=== PATIENT | female | born 1955 | race Two or more races ===

== ENCOUNTER 2024-04-14 10:50 | Outpatient (REF) | payer MEDICAID, SELFPAY ==
[2024-04-14 11:53] LABS: MANUAL DIFF FLAG NO
[2024-04-14 11:58] LABS: Basophils Percent Auto 0.7 % (0-2); Eosinophils Absolute Auto 0.2 X10*3/uL (0.0-0.4); Eosinophils Percent Auto 2.8 % (0-4); Hemoglobin 14.2 g/dl (12.0-16.0); Imm Gran Abs Auto 0.02 X10*3/uL (0.00-0.03); Imm Gran Pct Auto 0.3 % (0.0-0.4); Lymphocytes Percent Auto 33.9 % (20-40); Mean Corpuscular Hemoglobin 26.7 pg (27.0-33.0); Mean Corpuscular Volume 80.8 fL (80.0-98.0); Mean Platelet Volume 10.5 fL (9.4-12.3); Monocytes Absolute Auto 0.5 X10*3/uL (0.1-1.2); Monocytes Percent Auto 8.5 % (2-11); Neutrophils Absolute Auto 3.1 x10*3/uL (2.0-8.3); Neutrophils Percent Auto 53.8 % (45-73); Platelet Count 232 X10*3/uL (160-400); Red Blood Count 5.32 X10*6/uL (4.20-5.50); Red Cell Distribution Width 13.4 % (11.0-16.0); White Blood Count 5.8 X10*3/uL (4.8-10.8)
[2024-04-14 12:20] LABS: Alanine Aminotransferase 31 U/L (0-31); Alkaline Phosphatase 111 U/L (39-117); Anion Gap 13 (12-20); Aspartate Amino Transferase 31 U/L (5-31); Bilirubin Direct 0.2 mg/dL (0.0-0.5); Bilirubin Total 0.6 mg/dL (0.0-1.0); Blood Urea Nitrogen 11 mg/dL (9-16); Calcium 9.3 mg/dL (8.4-10.2); Carbon Dioxide 24 mmol/L (22-29); Chloride 108 mmol/L (96-108); Cholesterol 201 mg/dL (<200); Estimated Glomerular Filt Rate > 60; Glucose Random 97 mg/dL (60-115); HDL Cholesterol 37 mg/dL (>40); Iron 95 mcg/dL (30-160); LDL Cholesterol Calculated 136 mg/dL (<100); Percent Iron Saturation 38 % (15-50); Potassium 4.7 mmol/L (3.3-5.1); Sodium 140 mmol/L (135-145); Total Iron Binding Capacity 253 mcg/dL (228-428); Total Protein 7.5 g/dL (6.5-8.0); Triglycerides 144 mg/dL (<150); Unsaturated Iron Binding 158 ug/dL
[2024-04-14 12:43] LABS: Ferritin 250 ng/mL (10-250); TSH reflex Free T4 2.28 uIU/mL (0.32-4.0); Vitamin D 25-OH Total 38.3 ng/mL (>30)
[2024-04-14 13:07] LABS: Vitamin B12 297 pg/mL (200-900)
[2024-04-14 13:13] LABS: CT PCR NOT DETECTED (Not Detect.); NG PCR NOT DETECTED (Not Detect.)
[2024-04-15 04:56] LABS: HIV AB/AG Nonreactive (Nonreactive); HIV Num 1 0.08 S/CO (0.00-0.99); ~HepC Num1 0.12 S/CO (0.00-0.79); ~Hepatitis C Antibody Nonreactive (Nonreactive)
== END 2024-04-14 10:51 | disposition home or self-care (01) ==
LOC: HO.HHCL 10:50
PROVIDERS: Visit Provider Family Medicine
DX: Z00.00 Encounter for general adult medical examination without abnormal findings (principal); Z11.59 Encounter for screening for other viral diseases; Z11.4 Encounter for screening for human immunodeficiency virus [HIV]; Z11.3 Encounter for screening for infections with a predominantly sexual mode of transmission; Z86.39 Personal history of other endocrine, nutritional and metabolic disease
CPT/HCPCS: 36415; 80048; 80061; 80076; 82306; 82607; 82728; 83540; 84443; 85025; 86803; 87389; 87491; 87591

== ENCOUNTER → 2024-05-21 08:00 | Outpatient (BNV) | payer MEDICAID, SELFPAY | PROVIDERS: PCP Family Medicine; Visit Provider Internal Medicine | DX: Z12.31 Encounter for screening mammogram for malignant neoplasm of breast (principal) | CPT/HCPCS: 77063; 77067 ==

== ENCOUNTER 2024-05-21 08:02 | Outpatient (REF) | payer MEDICAID, SELFPAY ==
--- NOTE | ~2024-05-21 | MM_ITS ---
EXAMINATION: MM SCREENING DIGITAL BREAST TOMOSYNTHESIS, BILATERAL CLINICAL INFORMATION: Screening. Asymptomatic. COMPARISON: Mammography: Comparison is made with available priors TECHNIQUE: Digital breast mammography with tomosynthesis is performed in both the craniocaudal and mediolateral oblique views along with computer-aided detection (CAD). FINDINGS: The breasts are heterogeneously dense, which may obscure small masses (ACR BI-RADS breast composition Category c). There are no significant masses, abnormal calcifications, or other abnormalities. MM/MM tomosynthesis screening BI IMPRESSION: No mammographic evidence of malignancy. ASSESSMENT: BI-RADS BI-RADS 1 - Negative RECOMMENDATION: Routine annual mammography screening. 1 year F/U This examination should not preclude the clinical evaluation of a suspicious palpable abnormality. This patient's information was entered into a reminder system with a target due date for their next mammogram. Electronically signed by: Tammy Valle DO 06/02/2024 11:59 AM EDT
== END 2024-05-21 08:03 | disposition home or self-care (01) ==
LOC: HO.MAMMO 08:02
PROVIDERS: PCP Family Medicine; Visit Provider Family Medicine
DX: Z12.31 Encounter for screening mammogram for malignant neoplasm of breast (principal)
CPT/HCPCS: 77063; 77067

== ENCOUNTER 2025-04-30 18:07 | Emergency (ER) | payer MEDICAID, SELFPAY ==
--- NOTE | 2025-04-30 18:10 | ECG_ITS ---
Test Reason : CHEST PAIN Blood Pressure : */* mmHG Vent. Rate : 70 BPM Atrial Rate : 70 BPM P-R Int : 126 ms QRS Dur : 88 ms QT Int : 374 ms P-R-T Axes : 64 -25 105 degrees QTcB Int : 403 ms Normal sinus rhythm Nonspecific T wave abnormality Abnormal ECG No previous ECGs available Referred By: Yeison Gautam Electronically Signed By: JASVIR CHAU
[2025-04-30 18:22] VITALS: BP 163/74; PULSE 81; RESP 18; TEMP 36.4; O2SAT 100; BMI 21.7
--- NOTE | 2025-04-30 18:29 | ED.GENADULT ---
HPI - General Adult General Chief complaint: General Medical Stated complaint: chest pain, high bp Time Seen by Provider: 04/30/25 18:45 Source: patient Mode of arrival: ambulatory Limitations: no limitations History of Present Illness ED Provider: Dr. Barroso [facility] narrative: This is a 69-year-old female presenting to the ER today for evaluation of near syncopal episode. Patient stated that she had sudden onset of a chest discomfort. Then she began to feel lightheaded. She denies any trauma. Family was able to catch her. She feels generalized weakness. Denies any unilateral focal neurological deficit no issue her balance no vision issue no headaches. Denies any recent illness. Related Data Allergies Allergy/AdvReac Type Severity Reaction Status Date / Time Unable to Assess Allergy Verified 04/30/25 18:28 Review of Systems Review of Systems: Pertinent review of systems as mentioned in HPI. All other system otherwise negative. [facility] Past Medical History [facility] Narrative: None Social History Social History Advance Directives: No Advance Directives Information Provided: No Physical Exam ED Exam Exam: General: Pleasant, no distress, interacting appropriately Head: Normacephalic, atraumatic ENT: oral mucosa moist, neck supple, no tracheal deviation Cardiovascular: regular rate, regular rhythm, no murmurs, rubbing, gallops Respiratory: CTAB, no wheeze, rales, rhonchi Gastrointestinal: Soft, non distended, non tender, non guarding Extremities: No limb pain or swelling, no calf tenderness Neurological: Awake and alert, no facial droop noted, sensation is intact bilaterally, good strength in the upper and lower extremity, no sign of ataxia with [id number] Skin: Warm and dry Psychiatric: Appropriate mood and thoughts Vital Signs: Vital Signs - 24 hr 04/30/25 18:22 04/30/25 20:20 04/30/25 22:18 Temperature 97.6 F 98.1 F 97.9 F Pulse Rate 81 65 65 Respiratory Rate 18 14 15 Blood Pressure 163/74 H 125/54 L 124/61 Pulse Oximetry 100 98 99 Oxygen Delivery Method Room Air Room Air Room Air BMI result Body Mass Index 21.7 Course Course Course Narrative: RME, this is a rapid medical exam performed by Manuel Gautam please refer to primary provider for complete H&P- 69-year-old female presents for evaluation of near syncopal episode. The patient is complaining of chest pain, EKG performed on arrival, labs were ordered as well. Medications Administered Discontinued Medications Generic Name Dose Route Start Last Admin Trade Name Margi PRN Reason Stop Dose Admin Magnesium Sulfate 2 gm in 50 mls @ 50 mls/hr 04/30/25 19:19 04/30/25 20:43 Magnesium Sulfate/H2o IV 04/30/25 20:18 Infused ONCE ONE Infusion Sodium Chloride 1,000 mls @ 999 mls/hr 04/30/25 19:30 04/30/25 20:44 Ns IV 04/30/25 20:30 Infused .Q1H1M LILO Infusion Medical Decision Making Medical Decision Making [facility] Narrative: 69 year old female presented hospital today for a near syncopal episode. She does not have any symptoms of chest pain at this time or palpitation. Patient states she does feel generalized weakness. On exam she has no objective focal neurological deficit. I do not think this is a stroke. We will obtain basic lab work for the patient. We will obtain a EKG. We will plan to give patient a bolus IV fluid and IV magnesium. We will plan to reassess patient afterward. EKG did not show any signs of STEMI, patient's troponin is negative, lab work is unremarkable. On reassessment patient states she is feeling better. She is able to ambulate without any issues. She denies any chest pain. She is chest pain-free After discussion with family. I recommended a Holter monitor to detect further cardiac arrhythmia. And follow up with primary care doctor. During agreement with this plan. Patient will be discharged. Differential Diagnosis Differential Diagnoses: The differential diagnosis associated with the presentation includes Dehydration, cardiac arrhythmia, ACS, CVA Lab Data [facility] Lab Attestation statement: I reviewed the patient's lab results. 04/30/25 18:33 04/30/25 18:33 Labs: Lab Results 04/30/25 Range/Units 18:33 WBC 6.5 (4.8-10.8) X10*3/uL RBC 5.32 (4.20-5.50) X10*6/uL Hgb 14.1 (12.0-16.0) g/dl Hct 41.9 (37.0-47.0) % MCV 78.8 L (80.0-98.0) fL MCH 26.5 L (27.0-33.0) pg MCHC 33.7 (31.0-35.0) g/dl RDW 13.7 (11.0-16.0) % Plt Count 208 (160-400) X10*3/uL MPV 10.2 (9.4-12.3) fL Immature Gran % (Auto) 0.2 (0.0-0.4) % Neut % (Auto) 55.8 (45-73) % Lymph % (Auto) 31.1 (20-40) % Grady % (Auto) 9.4 (2-11) % Eos % (Auto) 2.6 (0-4) % Baso % (Auto) 0.9 (0-2) % Lymph # (Auto) 2.0 (1.2-4.9) X10*3/uL Grady # (Auto) 0.6 (0.1-1.2) X10*3/uL Eos # (Auto) 0.2 (0.0-0.4) X10*3/uL Baso # (Auto) 0.1 (0.0-0.2) X10*3/uL Abs Immat Gran (auto) 0.01 (0.00-0.03) X10*3/uL Absolute Neuts (auto) 3.6 (2.0-8.3) x10*3/uL Absolute Nucleated RBC 0.000 (0.0-0.012) X10*3/uL Nucleated RBC % (auto) 0.0 (0.0-0.2) /100WBC Sodium 143 (135-145) mmol/L Potassium 3.9 (3.3-5.1) mmol/L Chloride 106 (96-108) mmol/L Carbon Dioxide 29 (22-29) mmol/L Anion Gap 12 (12-20) BUN 12 (9-16) mg/dL Creatinine 0.96 (0.5-1.4) mg/dL Estim Creat Clear Calc 44.5 Estimated GFR 57 Random Glucose 98 (60-115) mg/dL Calcium 9.3 (8.4-10.2) mg/dL Total Bilirubin 0.5 (0.0-1.0) mg/dL AST 31 (5-31) U/L ALT 22 (0-31) U/L Alkaline Phosphatase 131 H (39-117) U/L Troponin I High Sens < 2.7 (<3.5-17.0) ng/L Total Protein 7.6 (6.5-8.0) g/dL Albumin 4.4 (3.5-5.0) g/dL Independent Interpretation I performed an independent interpretation of an: EKG Discharge Plan Discharge Clinical Impression: Near syncope, Dehydration Patient Disposition: Home, Self-Care Instructions: Near Syncope (ED) Additional Instructions: Follow up with your primary care doctor for a holter monitor to rule out cardiac arrythmia. Labwork here is reassuring. Your troponin which test for heart damage is negative. EKG is normal. Print Language: Upper Sorbian
[2025-04-30 18:39] LABS: MANUAL DIFF FLAG NO
[2025-04-30 18:41] LABS: Hematocrit 41.9 % (37.0-47.0); Hemoglobin 14.1 g/dl (12.0-16.0); Imm Gran Abs Auto 0.01 X10*3/uL (0.00-0.03); Imm Gran Pct Auto 0.2 % (0.0-0.4); Lymphocytes Absolute Auto 2.0 X10*3/uL (1.2-4.9); Mean Corpuscular HGB Conc 33.7 g/dl (31.0-35.0); Mean Corpuscular Hemoglobin 26.5 pg (27.0-33.0); Mean Corpuscular Volume 78.8 fL (80.0-98.0); NRBC Abs Auto 0.000 X10*3/uL (0.0-0.012); NRBC Pct Auto 0.0 /100WBC (0.0-0.2); Platelet Count 208 X10*3/uL (160-400); Red Blood Count 5.32 X10*6/uL (4.20-5.50); White Blood Count 6.5 X10*3/uL (4.8-10.8)
[2025-04-30 18:55] LABS: Alanine Aminotransferase 22 U/L (0-31); Albumin Level 4.4 g/dL (3.5-5.0); Alkaline Phosphatase 131 U/L (39-117); Anion Gap 12 (12-20); Aspartate Amino Transferase 31 U/L (5-31); Blood Urea Nitrogen 12 mg/dL (9-16); Calcium 9.3 mg/dL (8.4-10.2); Carbon Dioxide 29 mmol/L (22-29); Chloride 106 mmol/L (96-108); Creatinine Clr Calc Pharmacy 44.5; Estimated Glomerular Filt Rate 57; Potassium 3.9 mmol/L (3.3-5.1); Sodium 143 mmol/L (135-145); Total Protein 7.6 g/dL (6.5-8.0)
--- OUTSIDE RECORDS SUMMARY | 2025-04-30 18:57 | XMS_ITS | Clinical Summary ---
Author Organization [facility] Address [address] [place] [address] 7[address] [place] [address] Care Team Providers Care Coping Machine Assembler Name Role Phone Bruna Alvarez MD Primary Care Provider +1- [phone] Allergies No known active allergies Active Problems Problem Noted Date Diagnosed Date Palpitations 06/15/2024 Overview (09/21/2024): Seen by [facility] cardiology 06/15/2024 ETT ordered and 2 week Holter monitory. 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 -discussed scheduling another visit to have a repeat pap smear done. Assessment & Plan (03/22/2024 11:31 AM EDT): -pt notes having a pap smear over 30 years ago and notes it was normal. -discussed scheduling another visit to have a repeat pap smear done. Chest pain 03/22/2024 Overview (03/22/2024): -has had scattered episodes with resolution and then recent re-occurrence of atypical chest pain -do not have any of pt's previous records as she just moved from [facility]. -referred to Cardiology to get evaluated 03/22/24 Assessment & Plan (03/22/2024 11:41 AM EDT): -has had scattered episodes with resolution and then recent re-occurrence of atypical chest pain -do not have any of pt's previous records as she just moved from [facility]. 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 03/22/2024 Breast cancer screening by mammogram 03/22/2024 Overview (03/22/2024): -pt cannot remember having a mammogram -breast exam normal 03/22/24 -ordered mammogram 03/22/24 Assessment & Plan (03/22/2024 11:46 AM EDT): -pt cannot remember having a mammogram -breast exam normal 03/22/24 -ordered mammogram 03/22/24 Colon cancer screening 03/22/2024 Overview (04/20/2024): -had colonoscopy in [facility] 6 yrs ago, cannot remember any abnormal results -discussed ColoGuard testing, ordered testing to pt's home 03/22/24, negative 04/2024 Assessment & Plan (03/22/2024 11:46 AM EDT): -had colonoscopy in [facility] 6 yrs ago, cannot remember any abnormal results -discussed ColoGuard testing, ordered testing to pt's home 03/22/24 Personal history of hyperthyroidism 03/22/2024 Overview (03/22/2024): -ordered labs 03/22/24 Assessment & Plan (03/22/2024 11:47 AM EDT): -ordered labs 03/22/24 Resolved Problems Problem Noted Date Diagnosed Date Resolved Date Physical exam 03/22/2024 05/28/2024 Encounter for screening for malignant neoplasm of colon 03/22/2024 03/22/2024 Overview (03/22/2024): -had colonoscopy in [facility] 6 yrs ago, cannot remember any abnormal results -discussed ColoGuard testing, ordered testing to pt's home 03/22/24 Assessment & Plan (03/22/2024 11:29 AM EDT): -had colonoscopy in [facility] 6 yrs ago, cannot remember any abnormal results -discussed ColoGuard testing, ordered testing to pt's home 03/22/24 Encounter for screening mamm ogram for breast cancer 03/22/2024 03/22/2024 Overview (03/22/2024): -pt cannot remember having a mammogram -ordered mammogram 03/22/24 Assessment & Plan (03/22/2024 11:29 AM EDT): -pt cannot remember having a mammogram -ordered mammogram 03/22/24 Immunizations Immunization Administration Dates Next Due Pneumococcal Conjugate PCV 20 03/22/2024 Tdap 03/22/2024 Social History Tobacco Use Types Packs/Day Years Used Date Smoking Tobacco: Never Assessed Depression Answer Date Recorded Patient Health Questionnaire-9 Score 0 03/22/2024 Patient Health Questionnaire-9 Score 0 03/22/2024 Last PHQ-9: Questionnaire Data Not on file 0 03/22/2024 Housing Stability Answer Date Recorded What is your housing situation today? I am not s ure 03/22/[address] you li ve. Do you have problems with any of the following? None of the above 03/22/2024 Food Insecurity Answer Date Recorded Within the past 12 months, y ou worried that your food would run out before you got money to buy more: Never True 03/22/2024 Within the past 12 months,th e food you bought just didn't last and you didn't have enough money to get more: Never True Transportation Answer Date Recorded In the past 12 months, has l ack of transportation kept you from medical appts, meetings, work or from getting things needed for daily living? No 03/22/2024 Utilities Answer Date Recorded In the past 12 months, has t he electric, gas, oil or water company threatened to shut off services in your home? No 03/22/2024 Depression Answer Date Recorded Patient Health Questionnaire-2 Score 0 03/22/2024 Internet Access Answer Date Recorded Internet Access Q1 No 05/03/2024 Internet Access Q2 I do not want or need it 10/2023 Comments Unknown Sex and Gender Information Value Date Recorded Sex Assigned at Female 03/19/2024 9:57 AM EDT Legal Sex Female 11:04 AM EDT Gender Identity Female 03/19/2024 9:57 AM EDT Sexual Orientation Don't know 03/19/2024 9: 57 AM EDT Last Filed Vital Signs Vital Sign Reading Time Taken Comments Blood Pressure 125/71 03/22/2024 11:06 AM EDT Pulse 70 03/22/2024 11:06 AM EDT Temperature 37.2 C (98.9 F) 03/22/2024 11:06 AM EDT Respiratory Rate 18 03/22/2024 11:06 AM EDT Oxygen Saturation 96% 03/22/2024 11:06 AM EDT Inhaled Oxygen Concentration - - Weight 56.5 kg (124 lb 9.6 oz) 03/22/2024 11:06 AM EDT Height 154.9 cm (5' 1 ) 03/22/2024 11:06 AM EDT Body Mass Index 23.54 03/22/2024 11:06 AM EDT Plan of Treatment Health Maintenance Due Date Last Done Comments CT Colonography 1955 Colonoscopy 1955 FIT 1955 FOBT 1955 Sigmoidoscopy 1955 Alcohol/Substance Use Screening 1965 Tobacco Screening 1965 Zoster Vaccines (1 of 2) 2003 COVID-19 Vaccine (2023-2 5 season) 2024 Depression Screening 03/22/2025 03/22/2024, 03/22/2024 SDOH Screening 03/22/2025 03/22/2024 Influenza Vaccine (#1) 2025 Mammogram 05/21/2026 05/21/2024 Colorectal Cancer Screening 04/01/2027 FIT DNA/Cologuard 04/01/2027 04/01/2024 RSV Patients and Patients Aged 60 years or older (1 - 1-dose 75+ series) 2028 DTaP/Tdap/Td Vaccines (2 - T d or Tdap) 03/22/2034 03/22/2024 Pneumococcal Vaccine: 50+ Years Completed 03/22/2024 Hepatitis C Screening Completed 04/14/2024 HIB Vaccines Aged Out No longer eligi ble based on patient's age to complete this topic HPV Vaccines Aged Out No longer eligi ble based on patient's age to complete this topic Hepatitis A Vaccines Aged Out No long er eligible based on patient's age to complete this topic Hepatitis B Vaccines Aged Out No long er eligible based on patient's age to complete this topic IPV Vaccines Aged Out No longer eligi ble based on patient's age to complete this topic Meningococcal B Vaccine Aged Out No l onger eligible based on patient's age to complete this topic Meningococcal Vaccine Aged Out No rasheed gabrielle eligible based on patient's age to complete this topic RSV under 20 months Aged Out No longe r eligible based on patient's age to complete this topic Rotavirus Vaccines Aged Out No longer eligible based on patient's age to complete this topic Procedures Procedure Name Priority Date/Time Associated Diagnosis Comments COMPREHENSIVE METABOLIC PANEL Routine 04/30/2025 6:33 PM EDT Palpitations CBC WITH AUTO DIFFERENTIAL Routine 04/30/2025 6:33 PM EDT Palpitations BI MAMMOGRAM SCREENING TOMOSYNTHESIS BILATERAL Routine 05/21/2024 8:00 AM EDT Breast cancer screening by mammogram HEPATITIS C AB W/REFL TO HCV RNA, QN, PCR Routine 04/14/2024 10:55 AM EDT Encounter for hepatitis C screening test for low risk patient LAB COLOGUARD COLON CANCER SCREEN Routine 04/01/2024 9:30 AM EDT Colon cancer screening from Last 3 Months or Most Recently Relevant to Health Maintenance Results * (ABNORMAL) CBC auto differential (04/30/2025 6:33 PM EDT) White Blood Count 6.5 4.8 - 10.8 X10*3/uL [facility] Red Blood Count 5.32 4.20 - 5.50 X10*6/uL [facility] Hemoglobin 14.1 12.0 - 16.0 g/dl [facility] Hematocrit 41.9 37.0 - 47.0 % [facility] Mean Corpuscular Volume 78.8(L) 80.0 - 98.0 fL [facility] Mean Corpuscular Hemoglobin 26.5(L) 27.0 - 33.0 pg [facility] Mean Corpuscular HGB Conc 33.7 31.0 - 35.0 g/dl [facility] Red Cell Distribution Width 13.7 11.0 - 16.0 % [facility] Platelet Count 208 160 - 400 X10*3/uL [facility] Mean Platelet Volume 10.2 9.4 - 12.3 fL [facility] Neutrophils Percent Auto 55.8 45 - 73 % [facility] Imm Gran Pct Auto 0.2 0.0 - 0.4 % [facility] Lymphocytes Percent Auto 31.1 20 - 40 % [facility] Monocytes Percent Auto 9.4 2 - 11 % [facility] Eosinophils Percent Auto 2.6 0 - 4 % [facility] Basophils Percent Auto 0.9 0 - 2 % [facility] NRBC Pct Auto 0.0 0.0 - 0.2 /100WBC [facility] Neutrophils Absolute Auto 3.6 2.0 - 8.3 x10*3/uL [facility] Imm Gran Abs Auto 0.01 0.00 - 0.03 X10*3/uL [facility] Lymphocytes Absolute Auto 2.0 1.2 - 4.9 X10*3/uL [facility] Monocytes Absolute Auto 0.6 0.1 - 1.2 X10*3/uL [facility] Eosinophils Absolute Auto 0.2 0.0 - 0.4 X10*3/uL [facility] Basophils Absolute Auto 0.1 0.0 - 0.2 X10*3/uL [facility] NRBC Abs Auto 0.000 0.0 - 0.012 X10*3/uL [facility] 04/30/2025 6:33 PM EDT 04/30/2025 6:37 PM EDT us Generic External Data Provider LAB BLOOD ORDERAB LES Final Result [facility] [address] [place] [phone] * (ABNORMAL) Comprehensive Metabolic Panel (04/30/2025 6:33 PM EDT) Sodium 143 135 - 145 mmol/L [facility] Potassium 3.9 3.3 - 5.1 mmol/L [facility] Chloride 106 96 - 108 mmol/L [facility] Carbon Dioxide 29 22 - 29 mmol/L [facility] Anion Gap 12 12 - 20 [facility] Urea Nitrogen (BUN) 12 9 - 16 mg/dL [facility] Creatinine, Serum 0.96 0.5 - 1.4 mg/dL [facility] Creatinine Clr Calc Pharmacy 44.5 [facility] Comment:Provided height and weight: 160.02 cm,55.5 kg.eGFR (calculated from the MDRD study equation) and eCrCl(calculated from the Cockcroft-Gault equation) are based ondifferent parameters and may not yield comparable results.If eCrCl result is absurd, please check patient'sheight/weight. Estimated Glomerular Filt Rate 57 [facility] Comment:Chronic Kidney Disea se: Estimated GFR < 60 mL/min/1.95b6Qxafeh Kidney Disease: Estimated GFR < 15 mL/min/1.73m2 Glucose 98 60 - 115 mg/dL [facility] Calcium 9.3 8.4 - 10.2 mg/dL [facility] Bilirubin, Total 0.5 0.0 - 1.0 mg/dL [facility] Aspartate Amino Transferase 31 5 - 31 U/L [facility] Alanine Aminotransferase 22 0 - 31 U/L [facility] Total Protein 7.6 6.5 - 8.0 g/dL [facility] Albumin Level 4.4 3.5 - 5.0 g/dL [facility] Alkaline Phosphatase 131(H) 39 - 117 U/L [facility] 04/30/2025 6:33 PM EDT 04/30/2025 6:37 PM EDT us Generic External Data Provider LAB BLOOD ORDERAB LES Final Result Performing Organization Address City/State/[facility] Co de Phone Number [facility] [address] [place] [phone] * BI Mammogram Screening Tomosynthesis Bilateral (05/21/2024 8:00 AM EDT) Anatomical Region Laterality Modality Breast Bilateral Mammography 05/21/2024 8:00 AM EDT Narrative 06/02/2024 12:01 PM EDT [facility] [address] [place] [address] Mammography Report Signed Patient: Will Delong MR#: [id number] : 1955 Acct:[id number] Age/Sex: 68 / F ADM Date: 05/21/24 Loc: HO.MAMMO Attending Dr: Bruna Alvarez MD Ordering Physician: Bruna Alvarez MD Results: 1N egative Date of Service: 05/21/24 Follow Up: 1 Year From Orig inal Mammogram Procedure(s): MM tomosynthesis screening BI Accession Number(s): [id number] cc: rBuna Alvarez MD EXAMINATION: MM SCREENING DIGITAL BREAST TOMOSYNTHESIS, BILATERAL CLINICAL INFORMATION: Screening. Asymptomatic. COMPARISON: Mammography: Comparison is made with available priors TECHNIQUE: Digital breast mammography with tomosynthesis is performed in both the craniocaudal and mediolateral oblique views along with computer-aided detection (CAD). FINDINGS: The breasts are heterogeneously dense, which may obscure small masses (ACR BI-RADS breast composition Category c). There are no significant masses, abnormal calcifications, or other abnormalities. MM/MM tomosynthesis screening BI IMPRESSION: No mammographic evidence of malignancy. ASSESSMENT: BI-RADS BI-RADS 1 - Negative RECOMMENDATION: Routine annual mammography screening. 1 year F/U This examination should not preclude the clinical evaluation of a suspicious palpable abnormality. This patient's information was entered into a reminder system with a target due date for their next mammogram. Electronically signed by: Tamym Valle DO 06/02/2024 11:59 AM EDT Dictated By: Tammy Valle DO Signed By: <Electronically signed by Tammy Valle DO in OV> 06/02/24 1159 DD/ 0800 TD/TT: 05/21/24 0830 Patient Access Specialist: Procedure Note Donotuseinterpreter, Image - 06/02/2024 [facility] [address] [place] [address] Mammography Report Signed Patient: Will Delong#: [id number] : 1955cct:[id number] Age/Sex: 68 / FADM Date: 05/21/24 Loc: HO.MAMMO Attending Dr: Bruna Alvarez MD Ordering Physician: Bruna Alvarez MDResults: 1N egative Date of Service: 05/21/24Follow Up: 1 Year From Orig ina Mammogram Procedure(s): MM tomosynthesis screening BI Accession Number(s): [id number] cc: Bruna Alvarez MD EXAMINATION: MM SCREENING DIGITAL BREAST TOMOSYNTHESIS, BILATERAL CLINICAL INFORMATION: Screening. Asymptomatic. COMPARISON: Mammography: Comparison is made with available priors TECHNIQUE: Digital breast mammography with tomosynthesis is performed in both the craniocaudal and mediolateral oblique views along with computer-aided detection (CAD). FINDINGS: The breasts are heterogeneously dense, which may obscure small masses (ACR BI-RADS breast composition Category c). There are no significant masses, abnormal calcifications, or other abnormalities. MM/MM tomosynthesis screening BI IMPRESSION: No mammographic evidence of malignancy. ASSESSMENT: BI-RADS BI-RADS 1 - Negative RECOMMENDATION: Routine annual mammography screening. 1 year F/U This examination should not preclude the clinical evaluation of a suspicious palpable abnormality. This patient's information was entered into a reminder system with a target due date for their next mammogram. Electronically signed by: Tammy Valle DO 06/02/2024 11:59 AM EDT RP Dictated By: Tammy Valle DO Signed By: <Electronically signed by Tammy Valle DO in OV> 06/02/24 1159 DD/ 0800 TD/TT: 05/21/24 0830 Patient Access Specialist: Bruna Alvarez MD IMG BI PROCEDURES Final Re sult * Hepatitis C Antibody with Reflex to HCV, RNA, Quantitative, Real-Time PCR (04/14/2024 10:55 AM EDT) Hepatitis C Antibody Nonreactive Nonreactive [facility] Comment:Antibodies to HCV no t detected; does not exclude early acuteHCV infection. Blood Venous blood specimen / Unknown 04/14/2024 10:55 AM EDT 04/14/2024 11:40 AM EDT Bruna Alvarez MD LAB BLOOD ORDERABLES Final Result [facility] [address] [place] [phone] * Cologuard?? colon cancer screening (04/01/2024 9:30 AM EDT) Cologuard Result Negative Negative 04/16/20 1:08 AM EDT [facility] (CLIA #:[id number]) Comment: NEGATIVE TEST RESULT. A negative Cologuard result indicates a low likelihood that a colorectal cancer (CRC) or advanced adenoma (adenomatous polyps with more advanced pre-malignant features) is present. The chance that a person with a negative Cologuard test has a colorectal cancer is less than 1 in 1500 (negative predictive value >99.9%) or has an advanced adenoma is less than 5.3% (negative predictive value 94.7%). These data are based on a prospective cross-sectional study of 10,000 individuals at average risk for colorectal cancer who were screened with both Cologuard and colonoscopy. (Breanne Hernández al, N Engl J Med 2014;370(14):7941-8527) The normal value (reference range) for this assay is negative. COLOGUARD RE-SCREENING RECOMMENDATION: Periodic colorectal cancer screening is an important part of preventive healthcare for asymptomatic individuals at average risk for colorectal cancer. Following a negative Cologuard result, the [place] [employer] Society and U.S. Multi-Society Task Force screening guidelines recommend a Cologuard re-screening interval of 3 years. References: [place] [employer] Guideline for Colorectal Cancer Screening: https://www.cancer.org/cancer/srvlv-rdzhsw-gvvcpz/skunjimzv-roylzanmh-dwnmfuv/ac s-rec ommendations.html.; Marino DK, Ulisses CR, Gustavo DavidsonK, Colorectal Cancer Screening: Recommendations for Physicians and Patients from the U.S. Multi-Society Task Force on Colorectal Cancer Screening , Am J Gastroenterology 2017; 112:1278-7352. TEST DESCRIPTION: Composite algorithmic analysis of stool DNA-biomarkers with hemoglobin immunoassay. Quantitative values of individual biomarkers are not reportable and are not associated with individual biomarker result reference ranges. Cologuard is intended for colorectal cancer screening of adults of either sex, 45 years or older, who are at average-risk for colorectal cancer (CRC). Cologuard has been approved for use by the U.S. FDA. The performance of Cologuard was established in a cross sectional study of average-risk adults aged 50-84. Cologuard performance in patients ages 45 to 49 years was estimated by sub-group analysis of near-age groups. Colonoscopies performed for a positive result may find as the most clinically significant lesion: colorectal cancer [4.0%], advanced adenoma (including sessile serrated polyps greater than or equal to 1cm diameter) [20%] or non- advanced adenoma [31%]; or no colorectal neoplasia [45%]. These estimates are derived from a prospective cross-sectional screening study of 10,000 individuals at average risk for colorectal cancer who were screened with both Cologuard and colonoscopy. (Breanne Hernández al, N Engl J Med 2014;370(14):0549-4882.) Cologuard may produce a false negative or false positive result (no colorectal cancer or precancerous polyp present at colonoscopy follow up). A negative Cologuard test result does not guarantee the absence of CRC or advanced adenoma (pre-cancer). The current Cologuard screening interval is every 3 years. ([place] [employer] and U.S. Multi-Society Task Force). Cologuard performance data in a 10,000 patient pivotal study using colonoscopy as the reference method can be accessed at the following location: www.[employer]/results. Additional description of the Cologuard test process, warnings and precautions can be found at www.[employer].Page2Images. Stool specimen (specimen) 04/01/2024 9:30 AM EDT 04/02/2024 10:36 AM EDT Bruna Alvarez MD LAB MOLECULAR DIAGNOSTICS ORDERABLES Final Result [facility] (CLIA #:[id number]) [place] [address], from Last 3 Months or Most Recently Relevant to Health Maintenance Insurance [facility] ST[facility] Member Subscriber Plan / Payer (Ef fective 2024-Present) Name:Will Delong Relation to Subscriber:Self Name:Will Delong Payer ID:Not on file Group ID:Not on file Type:Medicaid Address: [facility] [id number] [place] [id number] Care Teams Coping Machine Assembler Relationship Specialty Start Date End Date Bruna Alvarez MD [address] [place] [address] PCP - General Family Medicine 11/19/23 Dr. Tati Chaidez MD [facility] Cardiology [address] [place] [phone] 09/21/24
[2025-04-30 19:06] LABS: Troponin-I High Sensitivity < 2.7 ng/L (<3.5-17.0)
[2025-04-30] MEDS: Magnesium Sulfate/H2O 2 GM/50 ML PIGGYBACK IV (19:43)
[2025-04-30 20:20] VITALS: BP 125/54; PULSE 65; RESP 14; TEMP 36.7; O2SAT 98
[2025-04-30 22:18] VITALS: BP 124/61; PULSE 65; RESP 15; TEMP 36.6; O2SAT 99
[2025-04-30 22:27] VITALS: BP 124/61; PULSE 65; RESP 15; TEMP 36.6; O2SAT 99
== END 2025-04-30 22:35 | disposition home or self-care (01) ==
PROVIDERS: Physician Assistant; Emergency Provider Student in an Organized Health Care Education/Training Program; PCP Family Medicine
DX: R07.89 Other chest pain (principal); R53.1 Weakness; E86.0 Dehydration; R42 Dizziness and giddiness
CPT/HCPCS: 36415; 80053; 84484; 85025; 93005; 96361; 96374; 99284; 99285; J3475

== ENCOUNTER → 2025-04-30 18:10 | Outpatient (BNV) | payer MEDICAID, SELFPAY | PROVIDERS: Emergency Provider Student in an Organized Health Care Education/Training Program; PCP Family Medicine; Visit Provider Internal Medicine | DX: R94.31 Abnormal electrocardiogram [ECG] [EKG] (principal); R07.9 Chest pain, unspecified | CPT/HCPCS: 93010 ==

== ENCOUNTER 2025-07-15 10:12 | Outpatient (REF) | payer MEDICAID, SELFPAY ==
--- OUTSIDE RECORDS SUMMARY | 2025-07-15 09:45 | XMS_ITS | Encounter Summary ---
Author Organization [employer] Address [address] [facility] [address] [place] [address] Care Team Providers Care Junior Programmer Name Role Phone Bruna Alvarez MD Primary Care Provider +1- [phone] Encounter Details Date Type Department Care Team ([facility] st Contact Info) Description 07/15/2025 9:45 AM EST Immunization [facility] [address] [place] [address] Encounter for immunization Social History Tobacco Use Types Packs/Day Years [...] Don't know 03/19/2024 9: 57 AM EDT documented as of this encounter Progress Notes * Aleksandra Wong RN - 07/15/2025 9:45 AM EST S: pt presents today with a family traffic assistant for nurse visit for the flu. Reviewed the immunization records and for now the only thing pt is due for is the High dose flu. Pt awake, alert and acts well. O: given high dose flu injection per protocols. Pt agrees to plan. Given left deltoid and charted. A: pt tolerated the injection without any difficulty. No bleeding from the site. P: monitor site and report adverse effects. Return as needed for further immunization. documented in this encounter Plan of Treatment Upcoming Encounters Date Type Department Care Team (Late st Contact Info) Description 09/21/2025 10:30 AM EST Office Visit [facility] [address] [place] [phone] Bruna Alvarez MD [address] [place] [phone] documented as of this encounter Visit Diagnoses Diagnosis Encounter for immunization documented in this encounter Additional Health Concerns Assessment Noted Time PHQ-9 Depression Total Score: 0 03/22/20 24 12:01 PM EDT documented as of this encounter Care Teams Junior Programmer Relationship Specialty Start Date End Date Bruna Alvarez MD [address] [place] [phone] PCP - General Family Medicine 11/19/23 Dr. Tati Chaidez MD [facility] Cardiology [address] [place] [address] 09/21/24 documented as of this encounter
--- OUTSIDE RECORDS SUMMARY | 2025-07-15 12:34 | XMS_ITS | Encounter Summary ---
Author Organization [employer] Address [address] [place] [address] 7t [place] [address] Care Team Providers Care Blast Furnace Supervisor Name Role Phone Bruna Alvarez MD Primary Care Provider +1- [phone] Encounter Details Date Type Department Care Team ([facility] st Contact Info) Description 07/15/2025 Orders Only [facility] PEDS [address] [place] [address] Lion Kern MD [address] [place] [address] Preventative health care (Primary Dx) Social History Tobacco Use Types Packs/Day Years [...] AM EDT documented as of this encounter Plan of Treatment Upcoming Encounters Date Type Department Care Team (Late st Contact Info) Description 09/21/2025 10:30 AM EST Office Visit [facility] MEDICINE [address] [place] [phone] Bruna Alvarez MD [address] [place] [phone] Scheduled Orders Name Type Priority Associated Diagnoses Orde r Schedule Varicella Zoster Antibody, IgG Lab Routine Preventative health care Expected: 07/15/2025 (Approximate), Expires: 07/15/2026 documented as of this encounter Visit Diagnoses Diagnosis Preventative health care- Primary Routine general medical examination at a health care facility documented in this encounter Additional Health Concerns Assessment Noted Time PHQ-9 Depression Total Score: 0 03/22/20 24 12:01 PM EDT documented as of this encounter Care Teams Blast Furnace Supervisor Relationship Specialty Start Date End Date Bruna Alvarez MD [address] [place] [phone] PCP - General Family Medicine 11/19/23 Dr. Tati Chaidez MD [facility] Cardiology [address] [place] [phone] 09/21/24 documented as of this encounter
--- OUTSIDE RECORDS SUMMARY | 2025-07-15 12:34 | XMS_ITS | Encounter Summary ---
Author Organization [employer] Address [address] [facility] 7t [place] [address] Care Team Providers Care Speech Therapy Director Name Role Phone Bruna Alvarez MD Primary Care Provider +1- [phone] Encounter Details Date Type Department Care Team (Latest Contact Info) Description 07/15/2025 Travel Social History Tobacco Use Types Packs/Day Years [...] Description 09/21/2025 10:30 AM EST Office Visit [facility] MEDICINE [address] [place] [address] Bruna Alvarez MD [address] [place] [phone] documented as of this encounter Visit Diagnoses Not on filedocumented in this encounter Additional Health Concerns Assessment Noted Time PHQ-9 Depression Total Score: 0 03/22/20 24 12:01 PM EDT documented as of this encounter Care Teams Speech Therapy Director Relationship Specialty Start Date End Date Bruna Alvarez MD [address] [place] [phone] PCP - General Family Medicine 11/19/23 Dr. [facility] [address] [place] [phone] 09/21/24 documented as of this encounter
--- OUTSIDE RECORDS SUMMARY | 2025-07-15 12:35 | XMS_ITS | Clinical Summary ---
Author Organization [employer] Address [address] [place] [address] 7t [place] [address] Care Team Providers Care Production Control Coordinator Name Role Phone Bruna Alvarez MD Primary Care Provider +1- [phone] Allergies No known active allergies Active Problems Problem Noted Date Diagnosed Date Palpitations 06/15/2024 Overview (09/21/2024): Seen by [facility] cardiology 06/15/2024 ETT ordered and 2 week Holter monitory. Lightheadedness 06/15/2024 Preventative health care 03/22/2024 Overview (03/22/2024): -next physical due after 03/22/25 -Eye care facilitated by [facility] is [facility] -Health care proxy at home specifically for Mandaen,discussed to bring into next visit 03/22/24 Assessment & Plan (03/22/2024 11:38 AM EDT): -next physical due after 03/22/25 -Eye care facilitated by [facility] is [facility] -Health care proxy at home specifically for Mandaen,discussed to bring into next visit 03/22/24 Pap [...] previous records as she just moved from [facility]. -referred to Cardiology to get evaluated 03/22/24 Assessment & Plan (03/22/2024 11:41 AM EDT): -has had scattered episodes with resolution and then recent re-occurrence of atypical chest pain -do not have any of pt's previous records as she just moved from [facility]. -referred to Cardiology to get evaluated 03/22/24 Blood transfusion declined b ecause patient is Mandaen 03/22/2024 Breast cancer screening by mammogram 03/22/2024 Overview (03/22/2024): -pt cannot remember having a mammogram -breast exam normal 03/22/24 -ordered mammogram 03/22/24 Assessment & Plan (03/22/2024 11:46 AM EDT): -pt cannot remember having a mammogram -breast exam normal 03/22/24 -ordered mammogram 03/22/24 Colon cancer screening 03/22/2024 Overview (04/20/2024): -had colonoscopy in [facility] 6 yrs ago, cannot remember any abnormal results -discussed ColoGuard testing, ordered testing to pt's home 03/22/24, negative 04/2024 Assessment & Plan (03/22/2024 11:46 AM EDT): -had colonoscopy in [facility] 6 yrs ago, cannot remember any abnormal [...] 03/22/2024 03/22/2024 Overview (03/22/2024): -had colonoscopy in [facility] 6 yrs ago, cannot remember any abnormal results -discussed ColoGuard testing, ordered testing to pt's home 03/22/24 Assessment & Plan (03/22/2024 11:29 AM EDT): -had colonoscopy in [facility] 6 yrs ago, cannot remember any abnormal results -discussed ColoGuard testing, ordered testing to pt's home 03/22/24 Encounter for screening mamm ogram for breast cancer 03/22/2024 03/22/2024 Overview (03/22/2024): -pt cannot remember having a mammogram -ordered mammogram 03/22/24 Assessment & Plan (03/22/2024 11:29 AM EDT): -pt cannot remember having a mammogram -ordered mammogram 03/22/24 Encounters Date Type Department Care Team Description 07/15/2025 9:45 AM EST Immunization [facility] [address] [place] [address] Encounter for immunization 07/15/2025 Orders Only [facility] [address] [place] [address] Lion Kern MD Preventative health care (Primary Dx) 07/15/2025 Travel 05/09/2025 Telephone [facility] MEDICINE [address] [place] [address] Damaris Roblero, FILM RENTAL CLERK Follow-up from Last 3 Months Immunizations Immunization Administration Dates Next Due Influenza, High Dose Seasonal, Preservative Free 07/15/2025 Pneumococcal Conjugate PCV 20 03/22/2024 Tdap 03/22/2024 [...] 03/22/2024 11:06 AM EDT Plan of Treatment Upcoming Encounters Date Type Department Care Team (Late st Contact Info) Description 09/21/2025 10:30 AM EST Office Visit [facility] [address] [place] [address] Bruna Alvarez MD [address] [place], [place] [phone] Health Maintenance Due Date Last Done Comments CT Colonography 1955 Colonoscopy 1955 FIT 1955 Sigmoidoscopy 1955 Alcohol/Substance Use Screening 1965 Tobacco Screening 1965 Zoster Vaccines (1 of 2) 2003 Depression Screening 03/22/2025 03/22/2024, 03/22/2024 SDOH Screening 03/22/2025 03/22/2024 FOBT 04/01/2025 04/01/2024 COVID-19 Vaccine (1 - 2024-2 6 season) 2025 Mammogram 05/21/2026 05/21/2024 Colorectal Cancer Screening 04/01/2027 FIT DNA/Cologuard 04/01/2027 04/01/2024 RSV Patients and Patients Aged 60 years or older (1 - 1-dose 75+ series) 2028 DTaP/Tdap/Td Vaccines (2 - T d or Tdap) 03/22/2034 03/22/2024 Pneumococcal Vaccine: 50+ Years Completed 03/22/2024 Hepatitis C Screening Completed 04/14/2024 Influenza Vaccine Completed 07/15/2025 HIB Vaccines Aged Out No longer eligi [...] Procedure Name Priority Date/Time Associated Diagnosis Comments HIGH SENSITIVITY TROPONIN I Routine 04/30/2025 6:33 PM EDT Palpitations COMPREHENSIVE METABOLIC PANEL Routine 04/30/2025 6:33 PM [...] Recently Relevant to Health Maintenance Results * High Sensitivity Troponin I (04/30/2025 6:33 PM EDT) TROPONIN I HIGH SENSITIVITY <2.7 <3.5 - 17.0 ng/L [facility] Comment:The [place] high sens itivity Troponin-I results should beused in conjunction with other diagnostic information suchas ECG, clinical observations and information, and patientsymptoms to aid in the diagnosis of [place]. 04/30/2025 6:33 PM EDT 04/30/2025 6:37 PM EDT us Generic External Data Provider LAB BLOOD ORDERAB LES Final Result [facility] [address] [place] [phone] * (ABNORMAL) CBC auto differential (04/30/2025 6:33 PM EDT) White Blood Count 6.5 4.8 - 10.8 X10*3/uL [facility] Red Blood Count 5.32 4.20 - 5.50 X10*6/uL [facility] Hemoglobin 14.1 12.0 - 16.0 g/dl [facility] Hematocrit 41.9 37.0 - 47.0 % [facility] Mean Corpuscular Volume 78.8(L) 80.0 - 98.0 fL [facility] Mean Corpuscular Hemoglobin 26.5(L) 27.0 - 33.0 pg [facility] Mean Corpuscular HGB Conc 33.7 31.0 - 35.0 g/dl [facility] Red Cell Distribution Width 13.7 11.0 - 16.0 % [facility] Platelet Count 208 160 - 400 X10*3/uL [facility] Mean Platelet Volume 10.2 9.4 - 12.3 fL [facility] Neutrophils Percent Auto 55.8 45 - 73 % [facility] Imm Gran Pct Auto 0.2 0.0 - 0.4 % [facility] Lymphocytes Percent Auto 31.1 20 - 40 % [facility] Monocytes Percent Auto 9.4 2 - 11 % [facility] Eosinophils Percent Auto 2.6 0 - 4 % [facility] Basophils Percent Auto 0.9 0 - 2 % [facility] NRBC Pct Auto 0.0 0.0 - 0.2 /100WBC [facility] Neutrophils Absolute Auto 3.6 2.0 - 8.3 x10*3/uL [facility] Imm Gran Abs Auto 0.01 0.00 - 0.03 X10*3/uL [facility] Lymphocytes Absolute Auto 2.0 1.2 - 4.9 X10*3/uL [facility] Monocytes Absolute Auto 0.6 0.1 - 1.2 X10*3/uL [facility] Eosinophils Absolute Auto 0.2 0.0 - 0.4 X10*3/uL [facility] Basophils Absolute Auto 0.1 0.0 - 0.2 X10*3/uL [facility] NRBC Abs Auto 0.000 0.0 - 0.012 X10*3/uL [facility] 04/30/2025 6:33 PM EDT 04/30/2025 6:37 PM EDT us Generic External Data Provider LAB BLOOD ORDERAB LES Final Result [facility] [address] [place] [phone] * (ABNORMAL) Comprehensive Metabolic Panel (04/30/2025 6:33 PM EDT) Sodium 143 135 - 145 mmol/L [facility] Potassium 3.9 3.3 - 5.1 mmol/L [facility] Chloride 106 96 - 108 mmol/L [facility] Carbon Dioxide 29 22 - 29 mmol/L [facility] Anion Gap 12 12 - 20 [facility] Urea Nitrogen (BUN) 12 9 - 16 mg/dL [facility] Creatinine, Serum 0.96 0.5 - 1.4 mg/dL [facility] Creatinine Clr Calc Pharmacy 44.5 [facility] Comment:Provided height and weight: 160.02 cm,55.5 kg.eGFR (calculated from the MDRD study equation) and eCrCl(calculated from the Cockcroft-Gault equation) are based ondifferent parameters and may not yield comparable results.If eCrCl result is absurd, please check patient'sheight/weight. Estimated Glomerular Filt Rate 57 [facility] Comment:Chronic Kidney Disea se: Estimated GFR < 60 mL/min/1.44s3Yzdeoa Kidney Disease: Estimated GFR < 15 mL/min/1.73m2 Glucose 98 60 - 115 mg/dL [facility] Calcium 9.3 8.4 - 10.2 mg/dL [facility] Bilirubin, Total 0.5 0.0 - 1.0 mg/dL [facility] Aspartate Amino Transferase 31 5 - 31 U/L [facility] Alanine Aminotransferase 22 0 - 31 U/L [facility] Total Protein 7.6 6.5 - 8.0 g/dL [facility] Albumin Level 4.4 3.5 - 5.0 g/dL [facility] Alkaline Phosphatase 131(H) 39 - 117 U/L [facility] 04/30/2025 6:33 PM EDT 04/30/2025 6:37 PM EDT us Generic External Data Provider LAB BLOOD ORDERAB LES Final Result Performing Organization Address City/State/[facility] Co de Phone Number [facility] [address] [place] [phone] * BI Mammogram Screening Tomosynthesis Bilateral (05/21/2024 8:00 AM EDT) Anatomical Region Laterality Modality Breast Bilateral Mammography 05/21/2024 8:00 AM EDT Narrative 06/02/2024 12:01 PM EDT [facility] [address] [place] [address] Mammography Report Signed Patient: Will Delong MR#: [id number] : 1955 Acct:[id number] Age/Sex: 68 / F ADM Date: 05/21/24 Loc: HO.MAMMO Attending Dr: Bruna Alvarez MD Ordering Physician: Bruna Alvarez MD Results: 1N egative Date of Service: 05/21/24 Follow Up: 1 Year From Orig ina Mammogram Procedure(s): MM tomosynthesis screening BI Accession Number(s): [id number] cc: Bruna Alvarez MD EXAMINATION: MM SCREENING [...] 06/02/24 1159 DD/ 0800 TD/TT: 05/21/24 0830 Application Development Consultant: Procedure Note Donotuseinterpreter, Image - [facility]02/20[facility] [address] [place] [address] Mammography Report Signed Patient: Will Delong#: [id number] : 3Acct:[id number] Age/Sex: 68 / FADM Date: 05/21/24 Loc: HO.MAMMO Attending Dr: Bruna Alvarez MD Ordering Physician: Bruna Alvarez MDResults: 1N egative Date of Service: 05/21/24Follow Up: 1 Year From Orig inal Mammogram Procedure(s): MM tomosynthesis screening BI Accession Number(s): [id number] cc: Bruna Alvarez MD EXAMINATION: MM SCREENING [...] Tammy Valle DO 06/02/2024 11:59 AM EDT Dictated By: Tammy Valle DO Signed By: <Electronically signed by Tammy Valle DO in OV> 06/02/24 1159 DD/ 0800 TD/TT: 05/21/24 0830 Application Development Consultant: Bruna Alvarez MD IMG BI PROCEDURES Final Re sult * Hepatitis C Antibody with Reflex to HCV, RNA, Quantitative, Real-Time PCR (04/14/2024 10:55 AM EDT) Hepatitis C Antibody Nonreactive Nonreactive [facility] Comment:Antibodies to HCV no t detected; does not exclude early acuteHCV infection. Blood Venous blood specimen / Unknown 04/14/2024 10:55 AM EDT 04/14/2024 11:40 AM EDT Bruna Alvarez MD LAB BLOOD ORDERABLES Final Result [facility] [address] [place] [phone] * Cologuard?? colon cancer screening (04/01/2024 9:30 AM EDT) Cologuard Result Negative Negative 04/16/20 1:08 AM EDT [facility] (CLIA #:[id number]) Comment: NEGATIVE TEST RESULT. A negative Cologuard [...] screened with both Cologuard and colonoscopy. (Breanne Feng et al, N Engl J Med 2014;370(14):4836-0811) The normal value (reference range) for this assay is negative. COLOGUARD RE-SCREENING RECOMMENDATION: Periodic colorectal cancer screening is an important part of preventive healthcare for asymptomatic individuals at average risk for colorectal cancer. Following a negative Cologuard result, the [place] [employer] Society and U.S. Multi-Society Task Force screening guidelines recommend a Cologuard re-screening interval of 3 years. References: [place] [employer] Guideline for Colorectal Cancer Screening: https://www.cancer.org/cancer/aifoj-dodjmk-oyezsk/ldpwzblrg-xndxzvjhm-mjyosib/ac s-rec ommendations.html.; Marino DK, Ulisses GLASER, Gustavo DavidsonK, Colorectal Cancer Screening: Recommendations for Physicians and Patients from the U.S. Multi-Society Task Force on Colorectal Cancer Screening , Am J Gastroenterology 2017; 112:0015-6052. TEST DESCRIPTION: Composite algorithmic analysis of stool [...] (Breanne Hernández al, N Engl J Med 2014;370(14):4761-3056.) Cologuard may produce a false negative or false positive result (no colorectal cancer or precancerous polyp present at colonoscopy follow up). A negative Cologuard test result does not guarantee the absence of CRC or advanced adenoma (pre-cancer). The current Cologuard screening interval is every 3 years. ([place] [employer] and U.S. Multi-Society Task Force). Cologuard performance data in a 10,000 patient pivotal study using colonoscopy as the reference method can be accessed at the following location: www.[employer]/results. Additional description of the Cologuard test process, warnings and precautions can be found at www.[employer]. Stool specimen (specimen) 04/01/2024 9:30 AM EDT 04/02/2024 10:36 AM EDT Bruna Alvarez MD LAB MOLECULAR DIAGNOSTICS ORDERABLES Final Result [facility] (CLIA #:[id number]) [place] [address], from Last 3 Months or Most Recently Relevant to Health Maintenance Insurance [facility] Care Teams Production Control Coordinator Relationship Specialty Start Date End Date Bruna Alvarez MD [address] [place] [address] PCP - General Family Medicine 11/19/23 Dr. Tati Chaidez MD [facility] Cardiology [address] [place] [phone] 09/21/24
== END 2025-07-15 10:13 | disposition home or self-care (01) ==
LOC: HO.CHCLDS 10:12
PROVIDERS: Visit Provider Internal Medicine
DX: Z00.00 Encounter for general adult medical examination without abnormal findings (principal)
CPT/HCPCS: 36415; 86787